=== PATIENT | male | born 1960 | race Caucasian/White ===

== ENCOUNTER 2016-08-21 18:06 | Emergency (ER) | payer OTHER, MEDICAID ==
[~2016-08-21] VITALS: Ht 177.8 cm; Wt 117.9 kg
[~2016-08-21 18:06] MED LIST: BENZ2TAB2; BUPR100T71 OR; CARI-277 OR; FLUO20CA19 PO; GABA800T87 OR; LITH150C6 OR; PRIM250T29 OR; RISP2TAB59 OR; RISP3TAB44 PO
[2016-08-21 18:10] VITALS: BP 136/72
[2016-08-21] MEDS ORDERED: KETOROLAC TROMETH 60MG/2ML VIAL IM ONE (20:00)
== END 2016-08-21 21:05 | disposition home or self-care (01) ==
LOC: ER 18:06 → EDUNIT# 18:06 → ER 21:05
DX: S46.812A Strain of other muscles, fascia and tendons at shoulder and upper arm level, left arm, initial encounter (principal); E11.9 Type 2 diabetes mellitus without complications; E78.5 Hyperlipidemia, unspecified; I10 Essential (primary) hypertension; F17.210 Nicotine dependence, cigarettes, uncomplicated; Z88.8 Allergy status to other drugs, medicaments and biological substances; Z90.49 Acquired absence of other specified parts of digestive tract; X58.XXXA Exposure to other specified factors, initial encounter; Y93.89 Activity, other specified; Y99.8 Other external cause status; Y92.89 Other specified places as the place of occurrence of the external cause
CPT/HCPCS: 73030; 96372; 99284; J1885

== ENCOUNTER 2018-12-31 08:28 | Emergency (ER) | payer OTHER, MEDICAID ==
[~2018-12-31] VITALS: Ht 172.7 cm; Wt 112.0 kg
[2018-12-31 08:38] VITALS: BP 143/91
== END 2018-12-31 09:16 | disposition home or self-care (01) ==
LOC: ER 08:29
DX: H10.33 Unspecified acute conjunctivitis, bilateral (principal); E11.9 Type 2 diabetes mellitus without complications; E78.5 Hyperlipidemia, unspecified; I10 Essential (primary) hypertension; F17.210 Nicotine dependence, cigarettes, uncomplicated; Z88.8 Allergy status to other drugs, medicaments and biological substances; Z79.899 Other long term (current) drug therapy; Z90.49 Acquired absence of other specified parts of digestive tract